=== PATIENT | male | born 1940 | race Caucasian/White ===

== ENCOUNTER → 2019-09-18 | Outpatient (CLI) | payer MEDICARE, OTHER ==
[~2019-09-18] MED LIST: AMOX-355 PO; ASP81TEC PO; CARV25TA PO; HYDR1TAB PO; LISI20TA PO; MTF500T PO; NIAC1CAP PO; OMEG1CAP51 PO; PRD10T PO; PRD20T PO; SIMV80TA3 PO
--- NOTE | 2019-09-18 13:56 | Diagnostic Imaging Report ---
INDICATION: Back pain with bruising. FINDINGS: KUB. Lung bases are clear. Bowel gas pattern normal. No evidence of constipation. No evidence of bowel obstruction. There is no organomegaly. No pathologic calcification. Surgical clips in the biliary fossa as well as within the pelvis. Moderate degenerative changes noted throughout the lumbar spine. IMPRESSION: No acute abnormalities demonstrated. Dictated by: Dictated on workstation # [id number]
--- NOTE | 2019-09-18 13:58 | Diagnostic Imaging Report ---
EXAMINATION: Chest, frontal and lateral views INDICATION: Back pain with bruising noted on physical exam. COMPARISON: Chest radiograph performed on 03/26/2010. FINDINGS: There is unchanged linear scarring in the left lung base. The lungs are otherwise clear and the pulmonary vasculature is normal. No pneumothorax or pleural effusion. Heart size and mediastinal contours are normal and unchanged. Mediastinal surgical clips and median sternotomy wires are again demonstrated, without evidence of sternal dehiscence. No acute osseous abnormalities appreciated. IMPRESSION: No radiographic evidence of acute chest disease. No significant change from prior. Dictated by: Dictated on workstation # [id number]
[2019-09-18 14:11] LABS: HEMATOCRIT 39 % (40-54); HEMOGLOBIN 12.9 G/DL (13.3-17.7); MEAN CORPUSCULAR HEMOGLOBIN 29 PG (25-34); MEAN CORPUSCULAR HGB CONC 33 G/DL (32-36); MEAN CORPUSCULAR VOLUME 88 FL (80-99); WHITE BLOOD COUNT 7.8 10^3/uL (4.3-11.0)
[2019-09-18 14:12] LABS: BASOPHILS # (AUTO) 0.1 10^3/uL (0.0-0.1); BASOPHILS % (AUTO) 1 % (0-10); EOSINOPHILS # (AUTO) 0.3 10^3/uL (0.0-0.3); EOSINOPHILS % (AUTO) 3 % (0-10); LYMPHOCYTES # (AUTO) 1.7 X 10^3 (1.0-4.0); LYMPHOCYTES % (AUTO) 22 % (12-44); MEAN PLATELET VOLUME 9.2 FL (7.4-10.4); MONOCYTES # (AUTO) 0.6 X 10^3 (0.0-1.0); MONOCYTES % (AUTO) 7 % (0-12); NEUTROPHILS # (AUTO) 5.1 X 10^3 (1.8-7.8); NEUTROPHILS % (AUTO) 66 % (42-75); PLATELET COUNT 231 10^3/uL (130-400); RED CELL DISTRIBUTION WIDTH 13.9 % (10.0-14.5)
[2019-09-18 14:17] LABS: INR 2.7 (0.8-1.4); PROTHROMBIN TIME PATIENT 29.7 SEC (12.2-14.7)
[2019-09-18 14:31] LABS: CREATININE SERUM 1.5 MG/DL (0.60-1.30); POTASSIUM 4.6 MMOL/L (3.6-5.0)
[2019-09-18 14:32] LABS: ALBUMIN 4.1 GM/DL (3.2-4.5); BILIRUBIN,TOTAL 0.9 MG/DL (0.1-1.0); CALCIUM 9.3 MG/DL (8.5-10.1); TOTAL PROTEIN 7.4 GM/DL (6.4-8.2)
== END ==
LOC: RAD FS 13:41
PROVIDERS: ATTEND Nurse Practitioner Family
DX: T14.8XXA Other injury of unspecified body region, initial encounter (principal); R10.9 Unspecified abdominal pain; M54.9 Dorsalgia, unspecified
CPT/HCPCS: 36415; 71046; 74018; 80053; 85025; 85610

== ENCOUNTER 2021-04-30 09:41 | Outpatient (CLI) | payer MEDICARE, OTHER ==
[~2021-04-30] VITALS: Ht 182.8 cm; Wt 77.1 kg
[2021-04-30] MEDS ORDERED: diphenhydrAMINE 50 MG/ML INJ (BENADRYL) IV PRN (09:45)
[2021-04-30] MEDS ORDERED: CASIRIVIMAB/IMDEVIMAB 1,200 MG in NS (IVPB) 250 ML IV ONE (09:45)
[2021-04-30] MEDS ORDERED: EPINEPHrine INJECTION 1 MG/ML AMP IM PRN (09:45)
[2021-04-30] MEDS ORDERED: ACETAMINOPHEN 500 MG TAB (TYLENOL) PO PRN (09:45)
[2021-04-30] MEDS ORDERED: ONDANSETRON 4 MG/2 ML (SDV) Z0FRAN IV PRN (09:45)
[2021-04-30 10:25] VITALS: BP 136/71
[2021-04-30 11:39] VITALS: BP 137/76
== END 2021-04-30 11:42 | disposition home or self-care (01) ==
LOC: INFUSION 09:41
PROVIDERS: ATTEND Family Medicine
DX: U07.1 COVID-19 (principal)